=== PATIENT | female | born 1955 | race Caucasian/White ===

== ENCOUNTER 2019-12-16 10:07 | Outpatient (CLI) | payer OTHER ==
--- NOTE | 2019-12-16 14:04 | MRI ---
MRI RIGHT KNEE WITHOUT CONTRAST: HISTORY: Knee pain. [id number]. Evaluate for meniscal tear. COMPARISON: None. FINDINGS: Medial meniscus: Mild intrameniscal degenerative signal in the body and posterior horn medial meniscus without a displ aced tear. Lateral meniscus: Intact. ACL and PCL are intact as well as the MCL and LCL. Extensor mechanism: Quadriceps tendon, patella, and patella tendon are intact. Cartilage: Patellofemoral compartment: Cartilage denuding at the lateral patellar facet and lateral trochlea with articular surface remodeli ng and subcortical cyst formation. There is also high-grade chondral loss of the lateral patellar fa cet. Medial compartment: Mild chondral fraying. No full-thickness defect. Lateral compartment: Some of a few 50-75% chondral fissures without full-thickness defect. Soft tissues: Moderate joint effusion with numerous bodies throughout the joint as well as synovitis. These bodies are calcified and ossified. Just deep to the level of the gastrocnemius is a body measuring up to 5 mm. Just deep to the medial head gastrocnemius is another body measuring up to 7 mm. There is mild suprapatellar recess synovitis. There is a calcified body just posterior to the medial meniscal bod y measuring 4 x 3 mm. Bones: No fracture. No malalignment. There is a moderate tricompartmental osteophyte formation. There is some mild fatty metaplasia of the synovium. IMPRESSION: 1. Mild intrameniscal degenerative signal and free edge fraying medial meniscal body and posterior h orn without a displaced tear. 2. Multiple bodies within the joint as described as well as a small calcified body adjacent to the p osterior horn medial meniscus with some low-grade capsular irritation. 3. 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 4. Moderate-sized tricompartmental osteophytes. POS: TPC
== END 2019-12-16 10:08 | disposition home or self-care (01) ==
LOC: SCSMRI 10:07
PROVIDERS: ATTEND Orthopaedic Surgery
DX: M25.561 Pain in right knee (principal); M94.261 Chondromalacia, right knee; M25.861 Other specified joint disorders, right knee; M25.761 Osteophyte, right knee; M17.11 Unilateral primary osteoarthritis, right knee

== ENCOUNTER 2020-01-07 07:48 | Outpatient (CLI) | payer OTHER ==
[2020-01-07 10:16] LABS: #Eosinphils 0.2 thou/uL (0.0-0.7); #Lymphocytes 1.6 thou/uL (1.20-3.40); #Monocytes 0.4 thou/uL (0.11-0.59); #Neutrophils 1.9 thou/uL (1.40-6.50); %Basophils 0.6 % (0.0-1.0); %Eosinophils 3.7 % (0.0-10.0); %Lymphocytes 38.4 % (21.0-51.0); %Neutrophils 47.3 % (42.0-75.0); Hemoglobin 14.4 g/dL (12.0-16.0); Mean Corpuscular HGB CONC 33.4 g/dL (32.0-36.0); Mean Corpuscular Hemoglobin 30.5 pg (27.0-31.0); Mean Corpuscular Volume 91.4 fL (78.0-98.0); Mean Platelet Volume 6.8 fL (7.4-10.4); Platelet Count 289 thou/uL (130-400); RBC Distribution Width 11.5 % (11.5-14.5); Red Blood Cell (RBC) Count 4.71 mill/uL (4.20-5.40); White Blood Cell (WBC) Count 4.1 thou/uL (4.8-10.8)
[2020-01-07 10:40] LABS: Anion Gap 11 mmol/L (10-20); BUN (Urea Nitrogen) 19 mg/dL (9.8-20.1); Calc. Creatinine Clearance 0 mL/min (70-130); Calcium 9.4 mg/dL (7.8-10.44); Carbon Dioxide 25 mmol/L (23-31); Chloride 107 mmol/L (98-107); Estimated GFR-MDRD 77; Glucose 78 mg/dL (80-115); Potassium 3.8 mmol/L (3.5-5.1); Sodium 139 mmol/L (136-145)
== END 2020-01-07 07:49 | disposition home or self-care (01) ==
LOC: LABBT 07:48
PROVIDERS: ATTEND Orthopaedic Surgery
DX: Z01.818 Encounter for other preprocedural examination (principal); S83.206A Unspecified tear of unspecified meniscus, current injury, right knee, initial encounter
CPT/HCPCS: 80048; 85025; 93005; 93010

== ENCOUNTER 2020-01-15 07:54 | Day surgery (SDC) | payer OTHER ==
[2020-01-07 08:26] VITALS: BMI 22.6
[2020-01-15] MEDS ORDERED: PROPOFOL 20 ML ONE (08:35)
[2020-01-15] MEDS ORDERED: Fentanyl 100 MCG/2 ML VIAL ONE (09:09)
[2020-01-15] MEDS ORDERED: Lidocaine 2% w/Epinephrine 1:200K 20 ML VIAL ONE (10:14)
[2020-01-15] MEDS ORDERED: Dexamethasone 20 MG/5 ML VIAL ONE (10:14)
[2020-01-15] MEDS ORDERED: PROPOFOL 200 MG/20 ML VIAL ONE (10:14)
[2020-01-15] MEDS ORDERED: Bupivacaine HCl 0.5%/Epinephrine 1:200,000/PF 30 ml Vial ONE (10:14)
[2020-01-15] MEDS ORDERED: Ondansetron PF 4 MG/2 ML Vial ONE (10:14)
[2020-01-15] MEDS ORDERED: HYDROcodone/Acetaminophen 5/325 mg Tablet ONE (11:51)
--- NOTE | 2020-01-18 08:42 | OP ---
DATE OF PROCEDURE: 01/15/2020 PREOPERATIVE DIAGNOSIS: Right knee arthritis with multiple cartilaginous loose bodies. POSTOPERATIVE DIAGNOSES: 1. Right knee arthritis with multiple cartilaginous loose bodies. 2. Lateral meniscus tear, posterior horn. PROCEDURES PERFORMED: 1. Right knee arthroscopy with partial lateral meniscectomy. 2. Right knee arthroscopy with removal of multiple small cartilaginous loose bodies as well as debridement and shaving of any loose cartilage in the knee. E LEARNING MANAGER: None. ESTIMATED BLOOD LOSS: Minimal. COMPLICATIONS: None. ANESTHESIA: She did have a general anesthetic as well as a local knee block. DISPOSITION: She went to recovery room in stable condition. INDICATIONS: This is a 64-year-old active female comes in complaining of pain and swelling in the knee. MRI scan found her to have some significant arthritic change in the knee with multiple areas of loose cartilage and some significant synovitis. At this time, she opted to have surgery. DESCRIPTION OF PROCEDURE: After all appropriate consent forms were explained and signed, she was taken back to the operative room and at this time was given general anesthetic. Tourniquet was placed on right thigh. Leg was then placed in arthroscopic leg hull. The leg was then prepped and draped in standard surgical fashion. At this time, the limb was exsanguinated and tourniquet was taken up to 300 mmHg. Inferolateral portal was established. Scope was placed into the knee joint. Needle localization technique was then used to make a medial working portal. Diagnostic arthroscopy commenced in the notch. ACL and PCL were probed, found to be intact. The medial compartment was evaluated. Meniscus was intact. The medial compartment itself did have some significant change in the femur, but no grade 4 cartilage loss was noted. Again, the shaver was introduced to removing a small cartilaginous loose bodies floating, making sure there was none underneath the meniscus or in the posterior recess behind the femur. At this time, we then turned our attention to the lateral compartment, which did show the patient to have a longitudinal tear of the posterior horn lateral meniscus, but there also was a flap component to the remaining posterior horn and this was taken back to a stable base using meniscal biter and shaver. Once this was done, again the remaining compartment was evaluated. Popliteus tendon was intact. No more loose bodies were noted and overall, the cartilage visible at this time was in good condition. We then swept through the medial and lateral gutters. There were multiple cartilaginous loose bodies in both. There were some synovitic changes in both, which were debrided with a shaver. The patellofemoral joint was then evaluated. The patella was found to have an essentially its entire central facet without any cartilage or there was a large osteophyte distally noted. There were significant osteophytes on the periphery of the medial and lateral femoral condyle. The entire lateral femoral condyle and trochlear region were devoid of any cartilage, and there were some significant small pieces of cartilage floating around the suprapatellar pouch. All the areas were debrided and removed of any loose cartilage or any loose cartilage flaps. Once this was done, the scope was removed, knee was drained, and the portals were closed with a simple nylon stitch. Bulky sterile dressing was applied. Tourniquet was let down. Toes pinked up nicely. The patient was awakened. She was taken to the recovery room in stable condition. All counts were correct at the end of the case. She received preoperative IV antibiotics. Job ID: [id number]
== END 2020-01-15 12:10 | disposition home or self-care (01) ==
LOC: SDC 07:54
PROVIDERS: ATTEND Orthopaedic Surgery
PROC: 0SBC4ZZ Excision of Right Knee Joint, Percutaneous Endoscopic Approach (ICD-10-PCS; principal; 2020-01-15)
DX: S83.281A Other tear of lateral meniscus, current injury, right knee, initial encounter (principal); M17.11 Unilateral primary osteoarthritis, right knee; M65.861 Other synovitis and tenosynovitis, right lower leg; F32.9 Major depressive disorder, single episode, unspecified; E78.5 Hyperlipidemia, unspecified; M81.0 Age-related osteoporosis without current pathological fracture; Z98.890 Other specified postprocedural states; Z79.899 Other long term (current) drug therapy; W19.XXXA Unspecified fall, initial encounter
CPT/HCPCS: J0670; J0690; J1100; J2405; J2704; J3010

== ENCOUNTER 2020-01-17 11:30 | Observation (INO) | payer OTHER ==
--- NOTE | 2020-01-17 12:25 | CT ---
CT head noncontrast HISTORY: Facial weakness. FINDINGS: No comparison. There is no evidence of acute intracranial hemorrhage or infarct. The ventri cles appear normal in size, shape and position. There is no mass effect or shift of midline structures. Visualized paranasal sinuses remain well aerated. IMPRESSION: No acute intracranial abnormalities are demonstrated.
[2020-01-17 12:28] LABS: #Basophils 0.1 thou/uL (0.0-0.2); #Eosinphils 0.1 thou/uL (0.0-0.7); #Lymphocytes 1.7 thou/uL (1.20-3.40); #Monocytes 0.4 thou/uL (0.11-0.59); #Neutrophils 4.8 thou/uL (1.40-6.50); %Basophils 0.9 % (0.0-1.0); %Eosinophils 1.1 % (0.0-10.0); %Lymphocytes 23.6 % (21.0-51.0); %Monocytes 6.1 % (0.0-10.0); %Neutrophils 68.3 % (42.0-75.0); Hemoglobin 13.5 g/dL (12.0-16.0); Mean Corpuscular HGB CONC 33.8 g/dL (32.0-36.0); Mean Corpuscular Hemoglobin 31.4 pg (27.0-31.0); Platelet Count 224 thou/uL (130-400); RBC Distribution Width 11.4 % (11.5-14.5); Red Blood Cell (RBC) Count 4.31 mill/uL (4.20-5.40)
[2020-01-17 12:39] LABS: ALT (SGPT) 11 U/L (8-55); AST (SGOT) 17 U/L (5-34); Albumin 3.7 g/dL (3.4-4.8); Alkaline Phosphatase 79 U/L (40-110); Anion Gap 11 mmol/L (10-20); BUN (Urea Nitrogen) 13 mg/dL (9.8-20.1); Bilirubin, Total 0.8 mg/dL (0.2-1.2); Calc. Creatinine Clearance 0 mL/min (70-130); Calcium 8.8 mg/dL (7.8-10.44); Carbon Dioxide 25 mmol/L (23-31); Chloride 107 mmol/L (98-107); Estimated GFR-MDRD 71; Globulin 2.3 g/dL (2.4-3.5); Glucose 82 mg/dL (80-115); Potassium 4.3 mmol/L (3.5-5.1); Sodium 139 mmol/L (136-145)
[2020-01-17] MEDS ORDERED: Aspirin Chewable 81 MG TAB ONE (12:54)
--- NOTE | 2020-01-17 14:15 | PDOC.HHP ---
Hospitalist HPI - History of Present Illness right arm weakness and slurred speech History of Present Illness: 64yo F w/ MHx of remote breast cancer (2003) and recent recent right knee mensical tear repair presents for right arm weakness and slurred speech. This morning at around 11am, stood up to head to bathroom and felt lightheaded, continued to bathroom, urinated, and heard paper towel falling so rushed to bathroom. At time, patient trying to express herself but couldn't and had weakness to the right arm only. called EMS who brought the patient to the ED. By the time EMS arrived, symptoms mostly resolved. on encounter, lying in bed comfortably and has no complaints. Endorses being very active and excercising several times weekly, last time this past . Denies fatigue, weight loss, losing counsiousness, seizure like activity, fever , chills, night sweats, chest pain, palpitations, swelling, hematochezia, melena , external blood loss, previous such episodes, smoking history, history of hypertension, premature family deaths. ED Course: In the ED, found to be asymptomatic, was administered aspirin and admitted to the stroke unit for further workup and management. Hospitalist ROS - Review of Systems Constitutional: denies: fever, chills, sweats, weakness, malaise, other Eyes: denies: pain, vision change, conjunctivae inflammation, eyelid inflammation, redness, other ENT: denies: ear pain, ear discharge, nose pain, nose discharge, nose congestion , mouth pain, mouth swelling, throat pain, throat swelling, other Respiratory: denies: cough, dry, shortness of breath, hemoptysis, SOB with excertion, pleuritic pain, sputum, wheezing, other Cardiovascular: denies: chest pain, palpitations, orthopnea, paroxysmal noc. dyspnea, edema, light headedness, other Gastrointestinal: denies: nausea, vomiting, abdominal pain, diarrhea, constipation, melena, hematochezia, other Genitourinary: denies: dysuria, frequency, incontinence, hematuria, retention, other Musculoskeletal: denies: neck pain, shoulder pain, arm pain, back pain, hand pain, leg pain, foot pain, other Skin: denies: rash, lesions, tim, bruising, other Neurological: reports: weakness, numbness, change in speech. 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 denies: Anemia NOS Psych: denies: Addictions Endocrine: denies: Diabetes, Hyperthyroidism, Hypothyroidism - Past Surgical History Past Surgical History: reports: Breast Biopsy Other Surgical History: arhtrroscopic right knee meniscal repair (01/2020) - Family History Family History: reports: cardiac disorder (uncle had heart attack in 70s). denies: diabetes mellitus - Social History Smoking Status: Never smoker Alcohol: reports: Occassional (1 glass of whine daily) Drugs: reports: none Living Situation: With Family Domestic Violence: Negative Activity level: independent ambulation - Exam General Appearance: NAD, awake alert Eye: PERRL, anicteric sclera ENT: normocephalic atraumatic, no oropharyngeal lesions, moist mucosa Neck: supple, symmetric, no JVD, no thyromegaly, no lymphadenopathy, no carotid bruit Neck - other findings: no carotid bruits appreciated Heart: no murmur, no gallops, no rubs, normal peripheral pulses Heart - other findings: regular rhythm, borderline bradycardic Gastrointestinal: soft, non-tender, non-distended, normal bowel sounds, no palpable masses, no hepatomegaly, no splenomegaly, no bruit Extremities: no edema Neurological: cranial nerve grossly intact, normal sensation to touch. negative : no weakness, no focal deficits, hemiplegia, speech deficit Musculoskeletal: normal tone, normal strength, no muscle wasting. negative: generalized weakness, diffuse muscle atrophy Psychiatric: normal affect, normal behavior, A&O x 3 Hospitalist Results - Labs Result Diagrams: 01/17/20 12:01 01/17/20 12:01 Lab results: WBC 7.0 thou/uL (4.8-10.8) 01/17/20 12: Hgb 13.5 g/dL (12.0-16.0) 01/17/20 12: Hct 40.0 % (36.0-47.0) 01/17/20 12:01 MCV 93.0 fL (78.0-98.0) 01/17/20 12:01 Plt Count 224 thou/uL (130-400) 01/17/20 12:01 Neutrophils % 68.3 % (42.0-75.0) 01/17/20 12:01 Sodium 139 mmol/L (136-145) 01/17/20 12:01 Potassium 4.3 mmol/L (3.5-5.1) 01/17/20 12:01 Chloride 107 mmol/L (98-107) 01/17/20 12:01 Carbon Dioxide 25 mmol/L (23-31) 01/17/20 12:01 BUN 13 mg/dL (9.8-20.1) 01/17/20 12:01 Creatinine 0.81 mg/dL (0.6-1.1) 01/17/20 12:01 Glucose 82 mg/dL (80-115) 01/17/20 12:01 Calcium 8.8 mg/dL (7.8-10.44) 01/17/20 12:01 Total Bilirubin 0.8 mg/dL (0.2-1.2) 01/17/20 12:01 AST 17 U/L (5-34) 01/17/20 12:01 ALT 11 U/L (8-55) 01/17/20 12:01 Alkaline Phosphatase 79 U/L (40-110) 01/17/20 12:01 Troponin I Less than 0.010 ng/mL (< 0.028) 01/17/20 12:01 Serum Total Protein 6.0 g/dL (6.0-8.3) 01/17/20 12:01 Albumin 3.7 g/dL (3.4-4.8) 01/17/20 12:01 - EKG Interpretation EKG: sinus bradycardia with LAFB; no signs of acute ischemia - Radiology Interpretation CT scan - head Status: report reviewed by co Hospitalist H&P A/P - Problem (1) Transient ischemic attack (TIA) Code(s): G45.9 - TRANSIENT CEREBRAL ISCHEMIC ATTACK, UNSPECIFIED Status: Acute (2) Right knee meniscal tear Code(s): S83.206A - UNSP TEAR OF UNSP MENISCUS, CURRENT INJURY, RIGHT KNEE, INIT Status: Acute - Plan Plan: #TIA -symptoms consistent with left M2/M3 distribution; may have been exacerbated by orthostatic hypotension and situational hypotension; resolved within 15 minutes ; ABCD2 score 4 -EKG showing sinus richmond (normal for patient because very active) and LAFB; patient made aware of finding however no additional workup necessary -CT head shows no ischemic signs -patient taking weight loss medications including phendimetrazine, sympathomimetic; however, otherwise medical history noncontributory Plan: -echo, CT angio neck, stroke unit with telemetry; orthostatic blood pressure -CBC, pt/ptt, electrolytes; lipid panel -aspirin, plavix, statin started #R meniscal tear s/p arthroscopic repair -progressing well in terms of function Plan: -pain control Disposition/PPx Full code; surrogate decision maker is DVT PPx: lovenox GI PPx: not indicated expected LOS: 1 midnight
[2020-01-17 14:39] VITALS: BMI 25.5
[2020-01-17] MEDS ORDERED: Iopamidol 370 76% 100 ML VIAL ONE (14:40)
[2020-01-17] MEDS ORDERED: Clopidogrel Bisulfate 300 MG TAB PO SCH (14:45)
[2020-01-17] MEDS: HYDROcodone/Acetaminophen 10/325 mg Tablet PO PRN ×2 (15:24→21:09)
[2020-01-17] MEDS: Sodium Chloride 0.9% 1,000 ML IV SCH (15:26)
--- NOTE | 2020-01-17 17:27 | CT ---
CT ANGIOGRAM HEAD CT ANGIOGRAM NECK: Date: 01-17-2020 Comparison: None. History: TIA, right sided facial weakness and slurred speech. Technique: Axial CT imaging at 1.25 mm intervals from the thoracic inlet through the vertex with IV c ontrast using CT angiogram protocol. Coronal and sagittal 3D reformatted imaging obtained. FINDINGS: The visualized lung apices appear grossly unremarkable. Extensive pulmonary arterial filling defects are noted within the partially imaged pulmonary arterial vasculature including the left main pulmonar y artery as well as pulmonary artery supplying imaged portions of the right and left upper lobe. Ther e is also multifocal pulmonary arterial embolism involving the imaged portions of the right upper lob e and right lower lobe. The thyroid gland is heterogeneous and contains multiple nodules, including a nodule in the right lob e measuring up to 1.6 cm. Follow up thyroid ultrasound is thus advised. The retro, antral, and parapharyngeal fat appears clear bilaterally. Limited assessment of the aerodigestive tract secondary to timing of the contrast bullous demonstrate s no acute findings in the region of the parotid glands, submandibular glands, tonsillar pillars, epi glottis and pre-epiglottic fat, hyoid bone, thyroid cartilage or cricoid cartilage. No lymphadenopath y is apparent within the neck. The origin of the innominate artery, left common carotid artery, and left subclavian artery appears u nremarkable. The origin of the right subclavian artery and right common carotid artery are unremarkab le. On the basis of NASCET criteria, there is no hemodynamically significant stenosis involving the c ommon carotid artery or the internal carotid artery on either side. The internal carotid artery is to rtuous bilaterally. The left vertebral artery is dominant and demonstrates a normal appearance. The right vertebral artery is hypoplastic but patent as well. The basilar artery and its branches are patent. No central intracranial arterial occlusion is seen involving the anterior or posterior circulation. T he A1 segment and distal PETE branches appear grossly unremarkable bilaterally. The M1 segment and MCA bifurcation appears grossly unremarkable as well. Review of the osseous structures demonstrates multilevel midcervical spine degenerative change with d isc space narrowing, degenerative endplate change, as well as anterior and posterior osteophyte. IMPRESSION: 1. Extensive acute pulmonary arterial embolism. 2. Abnormal appearance of the thyroid gland for which follow up thyroid ultrasound is advised. 3. On the basis of NASCET criteria, there is no hemodynamically significant stenosis involving the in ternal or common carotid artery on either side. 4. No evidence for a central intracranial arterial thrombus. 5. Results called to Dr. Benson at 4:40 p.m. on 01-17-2020. Code CR POS: OFF
[2020-01-17] MEDS ORDERED: Heparin 25,000 units/D5W 500 ML IVPB SCH (17:30)
[2020-01-17] MEDS ORDERED: Heparin 10,000 UNITS/ 10 ML VIAL SLOW IVP SCH (17:30)
--- NOTE | 2020-01-17 17:35 | PDOC.EVN ---
Event Note - Event Note Event Note: Received phone report from Dr. Hillman regarding finding of extensive bilateral pulmonary embolism found and CTA. Reported findings to patient, discussed risks and benefits of anticoagulation, and started on heparin drip considering signficant clot burden. Informed the nurse to report decompenstation to physician director instrumentation immediately.
[2020-01-17 18:09] LABS: Hemoglobin 11.6 g/dL (12.0-16.0); Platelet Count 200 thou/uL (130-400)
[2020-01-17] MEDS: Naproxen 500 MG TAB PO PRN (20:12)
[2020-01-17] MEDS ORDERED: Atorvastatin Calcium 40 MG TAB PO SCH (21:00)
[2020-01-17] MEDS ORDERED: HYDROcodone/Acetaminophen 10/325 mg Tablet PO PRN (23:38)
[2020-01-18 01:19] LABS: PTT 126.6 SEC (22.9-36.1)
[2020-01-18] MEDS: HYDROcodone/Acetaminophen 10/325 mg Tablet PO PRN ×4 (03:02→17:19)
[2020-01-18] MEDS: Sodium Chloride 0.9% 1,000 ML IV SCH ×2 (03:39→13:45)
[2020-01-18 04:58] LABS: PTT 46.3 SEC (22.9-36.1); Prothrombin Time 12.7 SEC (12.0-14.7)
[2020-01-18 05:19] LABS: Cardiac Risk 3.6 (Less than 4.5)
--- NOTE | 2020-01-18 07:41 | RAD ---
EXAM: Chest one view: HISTORY: Slurred speech and facial droop motor deficit COMPARISON: 04/30/2008 FINDINGS: Heart size: Within normal limits. Lungs: Clear of acute process. No evidence for confluent pneumonia, pleural effusion, acute edema, or pneumothorax, or other signifi cant acute process. IMPRESSION: No significant acute intrathoracic disease. Atherosclerosis of the aorta. Stable exam.
[2020-01-18 08:02] LABS: Hemoglobin 13.7 g/dL (12.0-16.0)
[2020-01-18] MEDS: Naproxen 500 MG TAB PO PRN (08:36)
[2020-01-18] MEDS ORDERED: VIT B PO SCH (09:00)
[2020-01-18] MEDS ORDERED: Multivitamin W/ Minerals 1 TAB PO SCH (09:00)
[2020-01-18] MEDS ORDERED: Citalopram 20 MG TAB PO SCH (09:00)
[2020-01-18] MEDS ORDERED: Calcium Carbonate 600 MG + Vit D TAB PO SCH (09:00)
[2020-01-18] MEDS ORDERED: Clopidogrel Bisulfate 75 MG TAB PO SCH (09:00)
[2020-01-18] MEDS ORDERED: Enoxaparin Sodium 30 MG/0.3 ML SYRINGE SC SCH (09:00)
[2020-01-18] MEDS ORDERED: Aspirin 325 mg Enteric Coated Tablet PO SCH (09:00)
--- NOTE | 2020-01-18 09:45 | RAD ---
PORTABLE CHEST: HISTORY: Shortness of breath. COMPARISON: A 01/17/2020 exam. FINDINGS: Heart size is within normal limits. There are atherosclerotic changes of the aorta. The lungs are c lear of infiltrates. Surgical clips are seen in the right axilla. IMPRESSION: No active intrathoracic disease. POS: C
[2020-01-18] MEDS ORDERED: HYDROcodone/Acetaminophen 10/325 mg Tablet PO PRN (10:30)
[2020-01-18 12:03] VITALS: TEMP 98.4
[2020-01-18 12:04] VITALS: BP 135/93
--- NOTE | 2020-01-19 12:02 | DIS ---
DATE OF ADMISSION: 01/17/2020 DATE OF DISCHARGE: 01/18/2020 HOSPITAL COURSE: Ms. Wilkinson is a 64-year-old female with a medical history of remote breast cancer, thyromegaly, and recent right knee meniscal tear repair, who presented with right arm weakness and slurred speech. As part of the stroke workup, CT angiography showed extensive bilateral pulmonary embolism including the left main pulmonary artery. The patient has been hemodynamically stable throughout her stay. EKG and echocardiography showed no right heart strain and she was diagnosed with pulmonary embolism, as well as TIA. She was treated with anticoagulant and antithrombotic and tolerated treatment well while being monitored in the stroke unit. In addition to that, the patient was found to have thyroid nodules on physical exam as well as imaging. TSH was elevated, but free T4 was normal. The patient was advised to follow up in [facility] regarding further workup of her thyroid nodules. She was discharged hemodynamically stable on oral anticoagulants, aspirin, and atorvastatin. She is planning to see her physician at [facility] in a week. She was educated in the presence of her spouse regarding indications to come back to the ED. PHYSICAL EXAMINATION: VITAL SIGNS: Unremarkable on exam. GENERAL: She was in no apparent distress. Alert and oriented x3. CARDIAC: Regular rate and rhythm. No rales or rhonchi. No JVD. LUNGS: Clear to auscultation bilaterally. No rales, rhonchi, or wheezing. ABDOMEN: Normal bowel sounds. No tenderness. No distention. EXTREMITIES: Normal strength throughout. No edema. NEUROLOGIC: Cranial nerves intact. Sensation intact throughout. HEENT: Appreciated thyromegaly with multiple thyroid nodules. ASSESSMENT AND PLAN: Ms. Wilkinson is a 64-year-old female, who presented with transient ischemic attack and pulmonary embolism with extensive clot burden, status post arthroscopic right knee meniscal repair. 1. Pulmonary embolism. 2. The patient had been hemodynamically stable with no signs of right heart strain throughout inpatient stay. She was discharged home with apixaban and extensive education regarding indication to return to the ED. 3. She will be followed by her physician at [facility] within a week. 4. Transient ischemic attack .. 5. The patient had focal signs consistent with M2 and M3 distribution that resolved within 15 minutes. 6. The patient was started on aspirin and Plavix on the first day, as well as atorvastatin. 7. The patient's Plavix was discontinued due to risk of bleeding in the presence of anticoagulation and the fact that CTA showed no carotid stenosis. 8. Multiple thyroid nodules. 9. TSH was elevated but free T4 was normal, suggestive of subclinical hypothyroidism. 10. The patient will require imaging studies in order to differentiate active and nonactive nodules and further biopsy. Job ID: [id number]
== END 2020-01-18 18:02 | disposition home or self-care (01) ==
LOC: ERS 11:30 → 2SE 13:18 → ERS 14:01
PROVIDERS: ADMIT Internal Medicine; ATTEND Internal Medicine
DX: G45.9 Transient cerebral ischemic attack, unspecified (principal); I26.99 Other pulmonary embolism without acute cor pulmonale; I48.91 Unspecified atrial fibrillation; I25.10 Atherosclerotic heart disease of native coronary artery without angina pectoris; I10 Essential (primary) hypertension; I35.0 Nonrheumatic aortic (valve) stenosis; E04.2 Nontoxic multinodular goiter; Z79.899 Other long term (current) drug therapy
CPT/HCPCS: 36415; 36416; 70450; 70496; 70498; 71045; 80053; 80061; 84439; 84443; 84480; 84484; 85014; 85018; 85025; 85610; 85730; 93005; 93306; 96361; 96365; 96366; 96375; G0378; J1644; Q9967

== ENCOUNTER 2020-04-27 13:08 | Outpatient (CLI) | payer OTHER ==
--- NOTE | 2020-04-27 13:30 | ULT ---
EXAM: Right lower extremity venous Doppler US HISTORY: Right lower extremity edema and pain FINDINGS: Grayscale, color-flow, Doppler evaluation, spectral analysis of the right lower extremity venous stru ctures is performed with 2-D imaging. The right common femoral, superficial femoral, popliteal, posterior tibial, proximal greater saphenous and profunda femoral veins are imaged. There is normal luminal compressibility, flow, and augmentation the visualized deep venous structures of the right lower extremity. IMPRESSION: No evidence of a deep vein thrombosis in the right lower extremity.
--- NOTE | 2020-04-27 14:22 | ULT ---
THYROID ULTRASOUND: HISTORY: Thyroid nodule. COMPARISON: None. FINDINGS: Enlarged heterogeneous thyroid gland. Thyroid isthmus measures 0.86 cm. Right thyroid lobe measures 2.7 x 5.3 x 2.0 cm. Left lobe measures 2.0 x 2.8 x 4.7 cm. Thyroid nodules: There is a dominant solid nodule in the inferior pole of the right thyroid lobe whic h has a solid echotexture and is slightly hyperechoic. This nodule measures 2.5 x 1.7 x 2.2 cm. IMPRESSION: Enlarged heterogeneous thyroid gland. Dominant solid nodule in the lower pole right thyroid lobe. TIRADS level TR 4, moderately suspicious. Fine-needle aspiration is recommended. Transcribed Date/Time: 04/27/2020 2:45 PM
== END 2020-04-27 13:09 | disposition home or self-care (01) ==
LOC: SCSULT 13:08
PROVIDERS: ATTEND Internal Medicine
DX: I82.401 Acute embolism and thrombosis of unspecified deep veins of right lower extremity (principal); I26.99 Other pulmonary embolism without acute cor pulmonale; M79.89 Other specified soft tissue disorders; E04.1 Nontoxic single thyroid nodule; E04.9 Nontoxic goiter, unspecified
CPT/HCPCS: 76536

== ENCOUNTER 2023-06-28 17:05 | Emergency (ER) | payer OTHER, MEDICARE ==
[2023-06-28] MEDS ORDERED: Ibuprofen 800 MG TAB ONE (18:16)
[2023-06-28] MEDS ORDERED: Cyclobenzaprine 10 MG TAB ONE (18:16)
== END 2023-06-28 20:04 | disposition home or self-care (01) ==
LOC: ERS 17:05
DX: M54.2 Cervicalgia (principal); V40.5XXA Car driver injured in collision with pedestrian or animal in traffic accident, initial encounter
CPT/HCPCS: 71045; 72125; 72170